=== PATIENT | male | born 1990 | race Two or more races ===

== ENCOUNTER 2025-03-14 15:41 | Outpatient (OUT) | payer BC, SELFPAY ==
--- OUTSIDE RECORDS SUMMARY | 2024-10-13 10:12 | XMS_ITS ---
Author Organization [facility] in [place] Address [address] [place] [address] Care Team Providers Care Robot Programmer Name Role Phone Esdras Sims Primary Care Provider [phone] chest Problems Problem Type SNOMED Code ICD Code Onset Dates Problem Status W/U Status Risk Notes Problem Pulmonary nodule (399039092) Pulmonary nodule (R91.1) Active confirmed Encounters Encounter Location Date Provider Diagnosis [facility] [address] [place] [address] 10/13/2024 Esdras Sims Pulmonary nodule R91 .1 Assessments Encounter Date Diagnosis (ICD Code) Assessment Notes Treatment Notes Treatment Clinical Notes Section Notes 10/13/2024 Pulmonary nodule (ICD-10 - R91.1) Plan Of Treatment Pending Test Test Name Order Date CT CHEST WO CON 10/13/2024 Progress Notes * Kirstie CLAYOB:1990 (34 yo M)Acc No.[id number]:10/13/2024 Patient: Lady CHANELEDIViniciusAlex :1990 A ge:34 Y S ex:Male [address], [place], [place], [address] Subjective: * Chief Complaints: * C t chest * Medical History: * Surgical History: * Hospitalization/Major Diagno stic Procedure: * Medications: Objective: * Vitals: * Physical Examination: Assessment: * Assessment: 1. P ulmonary nodule - R91.1 (Primary) Plan: * Treatment: * Procedure Codes: * true * Date: Generated for Jania ferrer/Apolinar/Seth on: 0 03/14/2025 03:49 PM EDT
--- OUTSIDE RECORDS SUMMARY | 2024-10-19 09:15 | XMS_ITS ---
Author Organization [facility] in [place] Address [address] [place] [address] Care Team Providers Care Composition Stone Applicator Name Role Phone Esdras Sims Primary Care Provider Allergies No Known Allergies REASON FOR VISIT 1wk f/u bhs Medications Medication SIG (Take, Route, Fr equency, Duration) Notes Start Date End Date Status levoFLOXacin 750 MG 1 tablet Orally Once a day for 10 day(s) 10/19/2024 Active Benzonatate 200 MG 1 capsule Orally Thr ee times a day for 7 days 10/19/2024 Active Cefdinir 300 MG 2 capsule Orally onc e a day for 10 days 10/13/2024 Active Social History Tobacco Use: Social History Observation Description Date Details (start date - stop date) Never Smoker NA - NA Tobacco Control (Standard) Question Answer Notes Tobacco use: Nonsmoker AUDIT-C (Standard) Question Answer Notes Did you have a drink containing alcohol in the p ast year? No Points 0 Interpretation Negative Vital Signs Weight 260 lbs 10/19/2024 Height 63 in 10/19/2024 Blood pressure systolic 154 mm Hg 10/20/19 25 Blood pressure diastolic 82 mm Hg 025 BMI 46.05 kg/m2 10/19/2024 Encounters Encounter Location Date Provider Diagnosis [facility] [address] [place] [address] 10/19/2024 Esdras Sims Acute bronchitis, unspecified organism J20.9 Assessments Encounter Date Diagnosis (ICD Code) Assessment Notes Treatment Notes Treatment Clinical Notes Section Notes 10/19/2024 Acute bronchitis, unspecified organism (ICD-10 - J20.9) Rest and drink more liquids, especially water. You may use a humidifier or vaporizer to help keep the drainage moist. Vrgu-xoj-mqrqiof Nasal Saline may help the stuffy and runny nose. Use Ibuprofen and or Tylenol as needed for fever, chills, body aches or pain. Children 5 years old should not be given quut-yzj-zihcnue cough and cold medications such as guaifenesin and dextromethorphan. If you're over age 5, you may try nvyj-krr-dvqnivr cold medications such as guaifenesin and dextromethorphan, or multi-symptom cold reliever such as Dayquil to help reduce the symptoms. Antibiotics have been prescribed. You should take these until completed and follow the directions. Antibiotics can sometimes cause upset stomach, and in rare cases, serious allergic reactions or serious gastrointestinal problems. If you start having severe abdominal pain, severe vomiting, or bloody diarrhea, you should be reevaluated by your physician or urgent care immediately. Follow up with your Primary Care Provider or return to clinic if symptoms do not improve within 3-5 days. If you develop severe symptoms such as shortness of breath, repeated vomiting, coughing up blood, or chest pain you should go to the emergency room or call 911 Plan Of Treatment Medication Medication Name Sig Start Date Stop Date Notes levoFLOXacin 750 MG 1 tablet Orally Once a day for 10 day(s) 10/19/2024 Benzonatate 200 MG 1 capsule Orally Thr ee times a day for 7 days 10/19/2024 Treatment Notes Assessment Notes Acute bronchitis, unspecified organism R est and drink more liquids, especially water. You may use a humidifier or vaporizer to help keep the drainage moist. Ylil-ird-zcekhpa Nasal Saline may help the stuffy and runny nose. Use Ibuprofen and or Tylenol as needed for fever, chills, body aches or pain. Children 5 years old should not be given vfth-bhe-ckxzzwe cough and cold medications such as guaifenesin and dextromethorphan. If you're over age 5, you may try smzl-zeq-cigzexu cold medications such as guaifenesin and dextromethorphan, or multi-symptom cold reliever such as Dayquil to help reduce the symptoms. Antibiotics have been prescribed. You should take these until completed and follow the directions. Antibiotics can sometimes cause upset stomach, and in rare cases, serious allergic reactions or serious gastrointestinal problems. If you start having severe abdominal pain, severe vomiting, or bloody diarrhea, you should be reevaluated by your physician or urgent care immediately. Follow up with your Primary Care Provider or return to clinic if symptoms do not improve within 3-5 days. If you develop severe symptoms such as shortness of breath, repeated vomiting, coughing up blood, or chest pain you should go to the emergency room or call 911 Next Appt Details Follow Up: 3-5 days if not i mproving, Reason: Medications Administered Medication Instructions Date of Administration Dosage Notes Dexamethasone, 4mg/mL 10/19/2024 8 mg Ketorolac Tromethamine 10/19/2024 60 mg Progress Notes * Sanjeev CLAYMayteOB:1990 (34 yo M)Acc No.[id number]:10/19/2024 Progress Note Patient: Alex BIANCHI Provider: Epifanio Sims ([facility])MD :1990 A ge:34 Y S ex:Male Date:10/19/2024 Address:[address] [place], [place] [id number] Check In:01:04 PM ESTCheck O ut:01:47 PM EST Subjective: * Chief Complaints: * 1 wk f/u bhs * HPI: B ronchitis: The patient complains of symptoms of bronchitis. The symptoms have been present for 1-2 days. The symptoms are moderate. The patient has not been exposed to sick contacts. Symptomatic treatment has included OTC medication. Associated symptoms include nasal congestion, postnasal drainage, congested ears, cough, fever, chills, body aches seen in er - rib pain - given morphine oxycodone,. * ROS: E NT: Ear pain d enies. H oarseness d enies. ? C ardiovascular: Edema d enies. P alpitations d enies. ? R espiratory: Comments S [facility] for details. G astrointestinal: Abdominal pain d enies. D iarrhea d enies. N ausea d enies. S kin: Rash d enies. * Active Problem List R91.1 Pulmonary nodule Modified On:10/14/2024W/U Status:confirmed * Medical History: * Surgical History: I njection in the left hip/groin 2018 * Hospitalization/Major Diagno stic Procedure: D enies Past Hospitalization * Family History: F ather: unknown, diagnosed with Diabetes mellitus without mention of complication, type II or unspecified type, not stated as uncontrolled. M other: alive, dementia, depression, kidney stones. S ister(s): alive. 1 sister(s) - healthy. . * Social History: T obacco Use: T obacco Control (Standard) T obacco use: N onsmoker D rug/Alcohol: A JENNIFER-C (Standard) D id you have a drink containing alcohol in the past year? N o P oints 0 I nterpretation N egative * Medications: T akingCefdinir 300 MG Capsule 2 capsule Orally once a day Medication List reviewed and reconciled with the patientTaking Cefdinir 300 MG Capsule 2 capsule Orally once a day Medication List reviewed and reconciled with the patient * Allergies: N .K.D.A.no[Allergies Verified] Objective: * Vitals: W t:260lbs, Ht: 63 in, BP:154/82mm Hg, BMI:46.05Index, Ht-cm: 160.02 cm, Wt-k.93 kg. * Examination: G eneral Examination: GENERAL APPEARANCE: in no acute distress. EYES: EOMI. EARS: auditory canal clear, middle ear effusion noted.? NOSE: clear discharge, turbinates pale and swollen. ORAL CAVITY: mucosa moist. THROAT: no erythema, post-nasal drainage noted. NECK: neck supple, no thyromegaly. LYMPH NODES: n o cervical adenopathy. LUNGS: unlabored, clear to auscultation bilaterally. CARDIO: n o murmurs, regular rate and rhythm. ABDOMEN: bowel sounds present, no organomegaly . ? Assessment: * Assessment: 1. A cute bronchitis, unspecified organism - J20.9 (Primary) Plan: * Treatment: * Therapeutic Injections: Dexamethasone, 4mg/mL : 8 mg (Route: Intramuscular) given by BUDDY Cates on left buttock (Acute bronchitis, unspecified organism) Ketorolac Tromethamine : 60 mg (Route: Intramuscular) given by BUDDY Cates on right buttock (Acute bronchitis, unspecified organism) * Procedure Codes: [id number] THERAP.INJ. OF MED. INTRAMUSCULAR OR [id number] Dexamethasone, 4mg/mL, Units: 2.00 J1885 TORADOL, PER 15 MG, Units: 4.00 * Preventive Medicine: Screenings/Counseling: B [place] ACTION PLAN Above Normal BMI Follow-up D ietary management education, guidance, and counseling * Follow Up: 3 -5 days if not improving * * Sign off status: Completed Visit Status: C HK (Check Out) true * Provider: Epifanio Sims ([facility])MD Date: 0 10/19/2024 Generated for Bobi carissa/Apolinar/eTransmitting on: 0 03/14/2025 03:48 PM EDT History and Physical Notes * Examination Category Sub-Category Detail Notes Category Not es General Examination GENERAL APPEARANCE: in no acute di stress EYES: EOMI EARS: auditory canal clear , middle ear effusion noted NOSE: clear discharge, tur binates pale and swollen THROAT: no erythema, post-na moira drainage noted NECK: neck supple, no thyr omegaly CARDIO: no murmurs, regular rate and rhythm LUNGS: unlabored, clear to auscultation bilaterally ABDOMEN: bowel sounds present , no organomegaly LYMPH NODES: no cervical adenopat hy ORAL CAVITY: mucosa moist
--- OUTSIDE RECORDS SUMMARY | 2025-03-13 06:15 | XMS_ITS ---
Author Organization [facility] in [place] Address [address] [place] [address] Care Team Providers Care Bridal Consultant Name Role Phone Esdras Sims Primary Care Provider Allergies No Known Allergies REASON FOR VISIT Presents to office alone. Started on Thursday feeling very fatigued and lightheaded. Still having some symptoms but better Social History Tobacco Use: Social History Observation Description Date Details (start date - stop date) Never Smoker NA - NA Tobacco Control (Standard) Question Answer Notes Tobacco use: Nonsmoker AUDIT-C (Standard) Question Answer Notes Did you have a drink containing alcohol in the p ast year? No Points 0 Interpretation Negative Problems Problem Type SNOMED Code ICD Code Onset Dates Problem Status W/U Status Risk Notes Problem Well adult (915574424) Well adult (Z00.00) Active confirmed Vital Signs Weight 278.6 lbs 03/13/2025 Height 63 in 03/13/2025 Blood pressure systolic 132 mm Hg 03/13/20 25 Blood pressure diastolic 88 mm Hg 025 BMI 49.35 kg/m2 03/13/2025 Encounters Encounter Location Date Provider Diagnosis [facility] [address] [place] [address] 03/13/2025 Esdras Sims Well adult Z00.0 0 Assessments Encounter Date Diagnosis (ICD Code) Assessment Notes Treatment Notes Treatment Clinical Notes Section Notes 03/13/2025 Well adult (ICD-10 - Z00.00) Plan Of Treatment Pending Test Test Name Order Date HEMOGLOBIN A1C (GLYCO) 03/13/2025 INSULIN, TOTAL 03/13/2025 LIPID PANEL (CHOL/TRIG/HDL/LDL) 03/13/20 25 THYROID PANEL (T4/TSH/FREE T3) 5 CMP (COMP MET NICOLE) w/eGFR CKD-EPI 2024 CBC WITH DIFF 03/13/2025 Progress Notes * Kirstie CLAYOB:1990 (34 yo M)Acc No.[id number]:03/13/2025 UNLOCKED PROGRESS NOTE Progress Note Patient: Alex BIANCHI Provider: Epifanio Sims ([facility])MD :1990 A ge:34 Y S ex:Male Date:03/13/2025 Address:[address] [place] [address] [address], ESSIE Patria [place], [id number] Check In:10:22 AM ESTCheck O ut:11:10 AM EST Subjective: * Chief Complaints: * 1 . Presents to office alone. Started on Thursday feeling very fatigued and lightheaded. Still having some symptoms but better. * HPI: G eneral: feeling light headead - doesnt think heat - was doing well drinkin. * ROS: E ENT: hearing changes d enies. v isual changes d enies.?non-healing mouth sores d enies. s wollen glands or neck lumps d enies. h oarseness d enies. s ore throat d enies. d ifficulty swallowing d enies. n ose bleeds d enies. n fitz congestion d enies. e ar ache d enies. e ar discharge?denies. r inging in ears d enies. l ight sensitivity d enies. e ye pain d enies. b lurring d enies. e ye irritation d enies. d ouble vision d enies.?vision loss d enies. G eneral/Constitutional: Sweats: D enies. F atigue d enies. S leep problems d enies. A norexia d enies. M alaise d enies. W eight loss d enies.?Fatigue or Weakness d enies. F ever or Chills d enies. C ardiovascular: Shortness of Breath w/lying flat d enies. L ightheadedness/dizziness d enies. C hest tightness/ heavy pressure d enies. S welling of legs, ankles, or feet d enies. W aking up with shortness of breath d enies. C hest pain denies. P alpitations d enies. W eight gain d enies. R espiratory: Chronic or frequent cough d enies. C oughing up blood?denies. D ifficulty breathing d enies. P roductive cough d enies. S noring?denies. S hortness of breath that awakens from sleep (PND) d enies. C hest pain d enies. S putum production d enies. W heezing d enies. M usculoskeletal: Joint pain d enies. J oint Fluid d enies. B ack pain d enies. K nee pain d enies. N alison pain d enies. J oint Stiffness d enies. M uscle cramps d enies. W eakness of muscles d enies. A rthritis d enies. M uscle aches d enies. P ain in shoulder(s) d enies. S wollen joints d enies. * Medical History: * Surgical History: I njection in the left hip/groin 2019. * Family History: F ather: unknown, diagnosed [...] 0 I nterpretation N egative * Medications: D iscontinued Benzonatate 200 MG Capsule 1 capsule Orally Three times a day , Discontinued Cefdinir 300 MG Capsule 2 capsule Orally once a day , Discontinued levoFLOXacin 750 MG Tablet 1 tablet Orally Once a day , Medication List reviewed and reconciled with the patient * Allergies: N .K.D.A. Objective: * Vitals: W t:278.6lbs, Ht: 63 in, BP:132/88mm Hg, BMI:49.35Index, Ht-cm: 160.02 cm, Wt-k.37 kg. * Examination: P hysical Exam: GENERAL: w ell developed, well nourished, in no acute distress. HEAD: n ormocephalic/atraumatic. EYES: p upils equal, round and reactive to light, conjunctivae and sclerae normal. EARS: n o deformity or lesion of external ear, canals and TM appear normal bilaterally, TM's intact, not inflamed with normal light reflex, hearing grossly normal to conversational speech. NOSE: n o deformity, discharge, inflammation, or lesions.? MOUTH: m ucous membranes moist, normal oropharynx and posterior pharynx without lesions or exudates, tongue normal, dentition normal. NECK: n alison supple, no masses or palpable cervical nodes, trachea midline, thyroid without nodules, masses, tenderness, or enlargement. CHEST: n o chest wall deformity, no chest wall tenderness.? LUNGS: n ormal respiratory effort and clear to auscultation, no wheezes, rales, or rhonchi, good air exchange. CARDIO: r egular rate and rhythm, normal S1 and S2, nor murmur, rub, or gallop. PULSES: n ormal capillary refill. ABDOMEN: s oft, non-distended, non-tender, no masses. MUSCULOSKELETAL: n o deformity or scoliosis noted, normal range of motion, joints normal, no erythema, edema, effusion, or ecchymosis. EXTREMITY: n o clubbing, cyanosis, edema, or deformity with normal ROM in both upper and lower bilateral extremities. NEUROLOGIC: g rossly normal. SKIN: n o rashes, ulcerations, or suspicious lesions. LYMPH NODES: n o cervical adenopathy, nodes normal. MENTAL STATUS: a lert and oriented x3, normal mood and affect. Assessment: * Assessment: 1. W ell adult - Z00.00 (Primary) Plan: * Treatment: * Preventive Medicine: Screenings/Counseling: B [place] ACTION PLAN Above Normal BMI Follow-up D ietary management education, guidance, and counseling See treatment section of progress note for complete details of management plan. * * Electronic signature of Esdras Sims MD, [id number] on 03/14/2025 at 03:49 PM EDT Sign off status: Pending Visit Status: C HK (Check Out) * Provider: Epifanio Sims ([facility])MD Date: 0 03/13/2025 Generated for Printi ng/Faxing/eTransmitting on: 0 03/14/2025 03:49 PM EDT History and Physical Notes * HPI (History of Present Illness) Category Sub-Category Detail Notes Category Not es General feeling light h eadead - doesnt think heat - was doing well drinkin Examination Category Sub-Category Detail Notes Category Not es Physical Exam GENERAL: well developed, well nourished, in no acute distress HEAD: normocephalic/atraum atic EYES: pupils equal, round and reactive to light, conjunctivae and sclerae normal EARS: no deformity or lesi on of external ear, canals and TM appear normal bilaterally, TM's intact, not inflamed with normal light reflex, hearing grossly normal to conversational speech NOSE: no deformity, discha rge, inflammation, or lesions MOUTH: mucous membranes klaudia st, normal oropharynx and posterior pharynx without lesions or exudates, tongue normal, dentition normal NECK: neck supple, no mass es or palpable cervical nodes, trachea midline, thyroid without nodules, masses, tenderness, or enlargement CHEST: no chest wall deform ity, no chest wall tenderness LUNGS: normal respiratory e ffort and clear to auscultation, no wheezes, rales, or rhonchi, good air exchange CARDIO: regular rate and rhy thm, normal S1 and S2, nor murmur, rub, or gallop PULSES: normal capillary ref ill ABDOMEN: soft, non-distended, non-tender, no masses RECTAL: MUSCULOSKELETAL: no deformity or scol iosis noted, normal range of motion, joints normal, no erythema, edema, effusion, or ecchymosis EXTREMITY: no clubbing, cyanosi s, edema, or deformity with normal ROM in both upper and lower bilateral extremities NEUROLOGIC: grossly normal SKIN: no rashes, ulceratio ns, or suspicious lesions LYMPH NODES: no cervical adenopat hy, nodes normal MENTAL STATUS: alert and oriented x 3, normal mood and affect
--- OUTSIDE RECORDS SUMMARY | 2025-03-14 15:49 | XMS_ITS | Patient Health Record ---
Author Organization [facility] in [place] Address [address] [place] [address] Care Team Providers Care Hardness Tester Name Role Phone Esdras Sims Primary Care Provider Allergies No Known Allergies Results Component Value Reference Range Notes COVID-19, Flu A+B IH (Not ye t reviewed by provider) Interpretation: Performing Lab: Notes/Report: COVID neg FLU A neg FLU B neg Control present Reason For Referral No Information Social History Tobacco Use: Social History Observation [...] W/U Status Risk Notes Problem Pulmonary nodule (783855703) Pulmonary nodule (R91.1) Active confirmed Problem Well adult (309456475) Well adult (Z00.00) Active confirmed Vital Signs Temperature 99.2 degrees Fahrenheit 10/13/2024 Blood pressure diastolic 88 mm Hg 03/13/2025 Height 63 in 03/13/2025 Blood pressure systolic 132 mm Hg 03/13/2025 Weight 278.6 lbs 03/13/2025 BMI 49.35 kg/m2 03/13/2025 Encounters Encounter Location Date Provider Diagnosis [facility] [address] [place] [address] 10/13/2024 Esdras Sims Cough R05.9 ; Body aches R52 ; Acute non-recurrent sinusitis, unspecified location J01.90 and Nasal congestion R09.81 [facility] [address] [place] [address] 10/19/2024 Esdras Hoy Acute bronchitis, unspecified organism J20.9 [facility] [address] [place] [address] 03/13/2025 Esdras Hoy Well adult Z00.00 [facility] [address] [place] [address] 10/13/2024 Esdras Hoy Pulmonary nodule R91 .1 Assessments Encounter Date Diagnosis (ICD Code) Assessment Notes Treatment Notes Treatment Clinical Notes Section Notes 10/13/2024 Cough (ICD-10 - R05.9) 10/19/2024 Acute bronchitis, unspecified organism (ICD-10 - J20.9) Rest and drink more liquids, especially water. You may use a humidifier or vaporizer to help keep the drainage moist. Wmlp-bqw-vaoicdw Nasal Saline may help the stuffy and runny nose. Use Ibuprofen and or Tylenol as needed for fever, chills, body aches or pain. Children 5 years old should not be given lukj-waz-qngdkdy cough and cold medications such as guaifenesin and dextromethorphan. If you're over age 5, you may try nuqr-vwk-fkdmxto cold medications such as guaifenesin and dextromethorphan, [...] to the emergency room or call 911 03/13/2025 Well adult (ICD-10 - Z00.00) 10/13/2024 Pulmonary nodule (ICD-10 - R91.1) 10/13/2024 Body aches (ICD-10 - R52) 10/13/2024 Acute non-recurrent sinusitis, unspecified location (ICD-10 - J01.90) Rest and drink more liquids, especially water. You may use a humidifier or vaporizer to help keep the drainage moist. Akma-gfy-mtonpqn Nasal Saline may help the stuffy and runny nose. Use Ibuprofen and or Tylenol as needed for fever, chills, body aches or pain. Children 5 years old should not be given eolg-wcd-jakryay cough and cold medications such as guaifenesin and dextromethorphan. If you're over age 5, you may try vnjw-jgq-drfpoiq cold medications such as guaifenesin and dextromethorphan, [...] if symptoms do not improve within 3-5 days 10/13/2024 Nasal congestion (ICD-10 - R09.81) Plan Of Treatment Pending Test Test Name Order Date HEMOGLOBIN A1C (GLYCO) 03/13/2025 INSULIN, TOTAL 03/13/2025 LIPID PANEL (CHOL/TRIG/HDL/LDL) 03/13/20 25 COVID-19, Flu A+B IH 10/13/2024 CT CHEST WO CON 10/13/2024 THYROID PANEL (T4/TSH/FREE T3) CMP (COMP MET NICOLE) w/eGFR CKD-EPI 2024 CBC WITH DIFF 03/13/2025 Insurance Providers Payer Name Payer Address Payer Phone Subscriber Number Group Number Insured Name Patient Relationship to Insured Coverage Start Date Coverage End Date [employer] PPO PLUS LOCAL PLAN [address] [place] [phone] [id number] Alex Clay Self - patient is the insured Medications Administered Medication Instructions Date of Administration Dosage Notes Dexamethasone, 4mg/mL 10/19/2024 8 mg Ketorolac Tromethamine 10/19/2024 60 mg Medical (General) History Surgical History Surgery Date(Month/Year) Injection in the left hip/groin 2019
--- OUTSIDE RECORDS SUMMARY | 2025-03-14 15:49 | XMS_ITS | Clinical Summary ---
Author Organization [facility] Healthcare Address [address] [place] [address] Care Team Providers Care Pattern Developer Name Role Phone Tamar Montano DO Primary Care Provider Unav ailable Allergies Active Allergy Reactions Criticality Noted Date Comments Azithromycin Unknown 12/23/2019 Medications predniSONE (Deltasone) 10 MG tabletIndicatio ns:Other chest pain,Acute cough Take 4 tabs x 3 days, 3 tabs x 3 days, 2 tabs x 3 days, 1 tab x 3 day 30 tablet 09/07/2023 Active albuterol HFA (Ventolin HFA) 90 mcg/act inhalerIndicati ons:Subacute cough Inhale 2 puffs every 4 (four) hours if needed for wheezing 18 g 11 10/14/2023 Active tiZANidine (Zanaflex) 4 MG tablet Take 4 mg by mouth 3 (three) times a day as needed for muscle spasms 10/19/2023 Active famotidine (Pepcid) 40 MG tabletIndicatio ns:Subacute cough Take 1 tablet (40 mg) by mouth at bedtime 100 tablet 3 10/29/2023 Active montelukast (Singulair) 10 MG tabletIndicatio ns:Subacute cough Take 1 tablet (10 mg) by mouth at bedtime 30 tablet 11 10/29/2023 Active Active Problems Problem Noted Date Diagnosed Date Morbid obesity due to excess calories 04/21/2023 Family History Medical History Relation Name Comments No Known Problems Father Arthritis Mother Hypertension Mother Angioedema Neg Hx Relation Name Status Comments Father Mother Alive Sister 1 sister Social History Tobacco Use Types Packs/Day Years Used Date Smoking Tobacco: Never Smokeless Tobacco: Never Tobacco Cessation:Counseling Given: Not Answered Alcohol Use Standard Drinks/Week Comments Not Currently 0 (1 standard drink = 0.6 oz pure alcohol) Caffeine intake : 1-2 cups per day soda / pop Humiliation, Afraid, Rape, and Kick questionnair e Answer Date Recorded Within the last year, have y ou been afraid of your partner or ex-partner? No 06/09/2023 Within the last year, have y ou been humiliated or emotionally abused in other ways by your partner or ex-partner? No Within the last year, have y ou been kicked, hit, slapped, or otherwise physically hurt by your partner or ex-partner? No 06/09/2023 Within the last year, have y ou been raped or forced to have any kind of sexual activity by your partner or ex-partner? No 06/09/2023 Social Connection and Isolation Panel [NHANES] A nswer Date Recorded In a typical week, how many times do you talk on the phone with family, friends, or neighbors? Three times a week 06/09/2023 How often do you get togethe r with friends or relatives? Once a week 06/09/2023 How often do you attend up health system or denominational services? Never 06/09/2023 Do you belong to any clubs o r organizations such as muslim groups, unions, fraternal or athletic groups, or school groups? No 06/09/2023 How often do you attend meet ings of the clubs or organizations you belong to? Patient declined 06/09/2023 Are you , , di vorced, , never , or living with a partner? Never 06/09/2023 AUDIT-C Answer Date Recorded Q1: How often do you have a drink containing alc ohol? Monthly or less 06/09/2023 Q2: How many drinks containi ng alcohol do you have on a typical day when you are drinking? 1 or 2 06/09/2023 Q3: How often do you have si x or more drinks on one occasion? Never 06/09/2023 Overall Financial Resource Strain (CARDIA) Answe r Date Recorded How hard is it for you to pa y for the very basics like food, housing, medical care, and heating? Not very hard 06/09/2023 [facility] [place] [facility] Occupat ional Health - Occupational Stress Questionnaire Answer Date Recorded Do you feel stress - tense, restless, nervous, or anxious, or unable to sleep at night because your mind is troubled all the time - these days? To some extent 06/09/2023 Exercise Vital Sign Answer Date Recorde d On average, how many days pe r week do you engage in moderate to strenuous exercise (like a brisk walk)? 6 days 06/09/2023 On average, how many minutes do you engage in exercise at this level? 150+ min 06/09/2023 Hunger Vital Sign Answer Date Recorded Within the past 12 months, y ou worried that your food would run out before you got the money to buy more. Never true 06/09/20 23 Within the past 12 months, t he food you bought just didn't last and you didn't have money to get more. Never true 06/09/2023 PRAPARE - Transportation Answer Date Re corded In the past 12 months, has l ack of transportation kept you from medical appointments or from getting medications? No 01/2023 In the past 12 months, has l ack of transportation kept you from meetings, work, or from getting things needed for daily living? No 06/09/2023 Housing Stability Vital Sign Answer Victor Manuel e Recorded In the last 12 months, was t here a time when you were not able to pay the mortgage or rent on time? No 06/09/2023 Number of Places Lived in the Last Year Not on f ile 06/09/2023 In the last 12 months, was t here a time when you did not have a steady place to sleep or slept in a retirement (including now)? No 06/09/2023 Sex and Gender Information Value Date Recorded Sex Assigned at Not on file Legal Sex Male 8:25 PM EDT Gender Identity Not on file Sexual Orientation Not on file Last Filed Vital Signs Vital Sign Reading Time Taken Comments Blood Pressure 138/82 10/29/2023 9:16 AM EDT Pulse 117 10/29/2023 9:16 AM EDT Temperature 36.2 C (97.1 F) 10/29/2023 9:16 AM EDT Respiratory Rate - - Oxygen Saturation 98% 10/29/2023 9:16 AM EDT Inhaled Oxygen Concentration - - Weight 116 kg (255 lb) 10/29/2023 9:16 AM EDT Height 160 cm (5' 3 ) 09/07/2023 1:36 PM EST Body Mass Index 45.17 09/07/2023 1:36 PM EST Plan of Treatment Health Maintenance Due Date Last Done Comments Influenza Vaccine (#1) 2025 Insurance [facility] Care Teams Pattern Developer Relationship Specialty Start Date End Date Tamar Montano DO PCP - General Family Medicine 12/09/22
--- OUTSIDE RECORDS SUMMARY | 2025-03-14 15:49 | XMS_ITS | Encounter Summary ---
Author Organization [facility] Address [address] [place] [address] Care Team Providers Care Hospice Office Coordinator Name Role Phone Jaci Galvan MD Unavailable [phone] Tamar Montano DO Primary Care Provider Unav ailable Jaci Galvan MD Unavailable [phone] Encounter Details Date Type Department Care Team (Late st Contact Info) Description 10/23/2023 Orders Only [facility] [address] [place] [id number] Jessica Reno MA Subacute cough Social History Tobacco Use Types Packs/Day Years Used Date Smoking Tobacco: Never Smokeless Tobacco: Never Alcohol Use Standard Drinks/Week Comments Not Currently [...] week 06/09/2023 How often do you attend chur ch or hindu services? Never 06/09/2023 Do you belong to any clubs o r organizations such as druze groups, unions, fraternal or athletic groups, or [...] care, and heating? Not very hard 06/09/2023 [facility] Occup[facility] ional Health - Occupational Stress [...] place to sleep or slept in a care home (including now)? No 06/09/2023 Sex and Gender Information Value Date Recorded Sex Assigned at Not on file Legal Sex Male 8:25 PM EDT Gender Identity Not on file Sexual Orientation Not on file documented as of this encounter Plan of Treatment Not on file documented as of this encounter Procedures Procedure Name Priority Date/Time Associated Diagnosis Comments PFT COMPLETE Routine 10/23/2023 3:51 PM EDT Subacute cough documented in this encounter Results * Pulmonary function testing (10/23/2023 3:51 PM EDT) us Jaci Galvan MD IMG XR PROCEDURES Final Resul t documented in this encounter Visit Diagnoses Diagnosis Subacute cough documented in this encounter Care Teams Hospice Office Coordinator Relationship Specialty Start Date End Date Jaci Galvan MD [address] [place] [id number] PCP - [employer] 10/01/22 Tamar Montano DO [address] [place] [id number] PCP - General Family Medicine 12/09/22 Jaci Galvan MD [address] [place] [id number] PCP - [employer] 02/15/24 documented as of this encounter
[2025-03-14 16:23] LABS: Hematocrit 40.6 % (42.0-54.0); Hemoglobin 13.3 g/dL (14.0-18.0); Immature Granulocytes Abs Auto 0.04 10^3/uL (0.00-0.03); Immature Granulocytes Pct Auto 0.5 % (0.0-0.5); Lymphocytes Absolute Auto 2.2 10^3/uL (1.2-3.8); Mean Corpuscular HGB Conc 32.8 g/dL (29.9-35.2); Mean Corpuscular Hemoglobin 26.9 pg (25.9-34.0); Mean Corpuscular Volume 82.2 fL (80.0-94.0); Platelet Count 326 10^3/uL (150-450); Red Blood Count 4.94 10^6/uL (4.70-6.10); White Blood Count 8.6 10^3/uL (4.0-11.0)
[2025-03-14 16:55] LABS: Alanine Aminotransferase 26 U/L (16-63); Albumin Globulin Ratio 0.7; Albumin Level 3.5 g/dL (3.4-5.0); Alkaline Phosphatase 58 U/L (46-116); Anion Gap 14.4; Aspartate Amino Transferase 18 U/L (15-37); Blood Urea Nitrogen 15.0 mg/dL (7.0-18.0); Calcium 9.1 mg/dL (8.5-10.1); Carbon Dioxide 24.5 mmol/L (21.0-32.0); Chloride 104 mmol/L (98-107); Cholesterol 108 mg/dL (<=200); Estimated GFR (African America >60 (>=60 mL/min/1.73m^2); Estimated GFR (Non-African Ame >60 (>=60 mL/min/1.73m^2); Free T3 2.81 pg/mL (2.18-3.98); Globulin 4.9 g/dL; Glucose 96 mg/dL (74-106); HDL Cholesterol 55 mg/dL (40-60); Potassium 3.9 mmol/L (3.5-5.1); Sodium 139 mmol/L (136-145); Thyroid Stimulating Hormone 2.470 uIU/mL (0.358-3.740); Total Protein 8.4 g/dL (6.4-8.2); Triglycerides 29 mg/dL (<=150); VLDL CHOLESTEROL 5.8 mg/dL
== END 2025-03-14 15:42 | disposition home or self-care (01) ==
LOC: LAB 15:47
PROVIDERS: PCP Family Medicine; Visit Provider Family Medicine
DX: Z00.00 Encounter for general adult medical examination without abnormal findings (principal)
CPT/HCPCS: 36415; 80053; 80061; 83036; 83525; 84436; 84443; 84481; 85025